=== PATIENT | female | born 1960 | race Caucasian/White ===

== ENCOUNTER 2018-03-03 05:06 | Day surgery (SDC) | payer BC ==
[~2018-03-03] VITALS: Ht 162.6 cm; Wt 68.9 kg
--- NOTE | ~2018-03-03 | OP ---
PATIENT NAME: LESLIE YORK MEDICAL RECORD: [id number] :56 LOCATION:[facility] ADMISSION DATE: SURGEON: NAZIA AHMADI MD DATE OF OPERATION: 03/03/2018 SURGEON: Nazia Ahmadi MD PREOPERATIVE DIAGNOSIS: Infiltrating lobular breast cancer. POSTOPERATIVE DIAGNOSIS: Infiltrating lobular breast cancer. PROCEDURE PERFORMED: Excisional biopsy of wire localized left axillary lymph node. ANESTHESIA: General. COMPLICATIONS: None. SPECIMENS: Left axillary lymph node, 2 x 2 x 3. Case was clean. ESTIMATED BLOOD LOSS: 20 cc. OPERATIVE COURSE: After consent was obtained, the patient was taken to the operating room and placed in supine position on the operating table. Next, general anesthesia was given via endotracheal intubation after a timeout was performed to confirm the correct patient and procedure. The left axilla was prepped and draped in typical sterile fashion. A 10 cc of local anesthetic was injected. An incision was made with a 15 blade scalpel. Dissection then continued to the subcutaneous tissue with Metzenbaum scissors following the path of the wire. The subcutaneous tissue, lymph node were circumferentially dissected with Metzenbaum scissors, removed and sent for permanent pathology. Next, the wound was copiously irrigated and suctioned. Hemostasis was obtained with electrocautery. Multiple clips were placed for localization. The subcutaneous tissues then closed with 3-0 Vicryl suture. The skin was closed with 4-0 subcuticular stitch, Mastisol and Steri-Strips. At the end of the case, all needle and instrument counts were correct. No complications occurred. The patient was extubated and transferred to the PACU in stable condition. TRANSINT:[id number] Voice Confirmation ID: [id number] DOCUMENT ID: [id number] NAZIA AHMADI MD at 0811 CC: [id number] DICTATION DATE: 03/03/18 1354 TRAILHEAD MAINTENANCE WORKER: 03/03/18 1539 [facility] 03/03/[address] [address]
[~2018-03-03 05:06] MED LIST: AMOXICILLIN500 M1 PO; AROMASIN25 MG PO; BACTRIM DS TABL1 TAB PO; BIOTIN5 MG PO; K-DUR20 MEQ PO; PERCOCET 10/3251 TA1 PO; PRILOSEC20 MG PO; PROBIOTIC250 MG PO; TAMOXIFEN CITRA20 MG PO; XANAX0.5 MG PO; ZIAC 5/6.25 MG1 TAB PO; ZOCOR5 MG PO
[2018-03-03 07:20] LABS: EOSINOPHILS 1.6 % (0-7); HEMATOCRIT 36.8 % (36.0-48.0); IMMATURE GRANULOCYTES 0.1 % (0-5); LYMPHOCYTES 32.9 % (15-50); MCH 31.5 pg (26.0-34.0); MCHC 32.6 g/dL (31.0-37.0); MCV 96.6 fL (80.0-100.0); MONOCYTES 8.3 % (2-11); NEUTROPHILS 56.1 % (40-80); RBC 3.81 10x6/uL (4.00-5.40); RDW 14.7 % (11.5-14.5); WBC 8.7 10x3/uL (4.8-10.8)
[2018-03-03 07:21] LABS: PLATELET COUNT 133 10x3/uL (130-400)
[2018-03-03 07:30] LABS: APTT 33.5 SECONDS (22.8-39.4); INR 1.27 (0.85-1.17); PROTIME 15.5 SECONDS (11.6-15.0)
[2018-03-03 07:31] VITALS: BP 140/85; Ht 162.6 cm; Wt 68.9 kg
[2018-03-03 07:31] LABS: CALC OSMOLALITY 281 mosm/kg (275-300); CALCIUM 8.6 mg/dL (8.5-10.1); CARBON DIOXIDE 22.3 mmol/L (21.0-32.0); CHLORIDE - SERUM 106 mmol/L (98-107); CREATININE - SERUM 0.5 mg/dL (0.6-1.3); GLUCOSE 100 mg/dL (74-106); SODIUM 142 mmol/L (136-145); UREA NITROGEN 10 mg/dL (7-18); eGFR NON AFRICAN AMERICAN > 90 mL/min (90-120)
[2018-03-03] MEDS ORDERED: HYDROCODON-ACE1 EAC7 PO (13:54)
== END 2018-03-03 16:15 | disposition home or self-care (01) ==
LOC: D.OPS 05:06 → D.PAN 07:30 → D.MAMMO 07:30 → D.PAN 08:00 → D.OPS 16:15
PROVIDERS: Anesthesiology
DX: C50.919 Malignant neoplasm of unspecified site of unspecified female breast (principal); Z01.812 Encounter for preprocedural laboratory examination

== ENCOUNTER 2018-12-16 10:39 | Inpatient (IN) | payer BC ==
[~2018-12-16] VITALS: Ht 162.6 cm; Wt 64.4 kg
[~2018-12-16 10:39] MED LIST changes: +HYDROCODON-ACE1 EAC7 PO
[2018-12-16 12:09] VITALS: BP 133/46
[2018-12-16 12:28] VITALS: BP 103/46; BMI 24.4
[2018-12-16 12:35] LABS: HEMATOCRIT 23.8 % (36.0-48.0); HEMOGLOBIN 7.9 g/dL (12-16); MCH 40.3 pg (26.0-34.0); MCHC 33.2 g/dL (31.0-37.0); MCV 121.4 fL (80.0-100.0); MEAN PLATELET VOLUME 10.2 fL (7.4-10.4); RDW 24.2 % (11.5-14.5); WBC 16.2 10x3/uL (4.8-10.8)
[2018-12-16] MEDS ORDERED: ZANTAC300 MG PO (12:41)
[2018-12-16 12:43] LABS: PLATELET COUNT 45 10x3/uL (130-400); RBC 1.96 10x6/uL (4.00-5.40)
[2018-12-16 12:46] LABS: ALBUMIN 3.3 g/dL (3.4-5.0); ALKALINE PHOSPHATASE 147 U/L (46-116); ALT (SGPT) 28 U/L (10-68); BILIRUBIN - TOTAL 3.17 mg/dL (0.2-1.3); CALC OSMOLALITY 279 mosm/kg (275-300); CARBON DIOXIDE 21.4 mmol/L (21.0-32.0); CHLORIDE - SERUM 104 mmol/L (98-107); CREATININE - SERUM 0.7 mg/dL (0.6-1.3); GLUCOSE 97 mg/dL (74-106); POTASSIUM - SERUM 3.4 mmol/L (3.5-5.1); PROTEIN - SERUM 7.2 g/dL (6.4-8.2); SODIUM 141 mmol/L (136-145); UREA NITROGEN 11 mg/dL (7-18); eGFR NON AFRICAN AMERICAN 90 mL/min (90-120)
[2018-12-16 12:48] LABS: CALCIUM 5.6 mg/dL (8.5-10.1)
--- NOTE | 2018-12-16 13:32 | NUR ---
SPOKE WITH MARTINA AT DR. CISNEROS OFFICE ABOUT CRITICAL LABS. STATED SHE WOULD LET DR. CISNEROS KNOW. NO NEW ORDERS AT THIS TIME.
--- NOTE | 2018-12-16 13:49 | MORECARE ---
CASE MANAGEMENT DISCHARGE SUMMARY PATIENT: LESLIE YORK UNIT: [id number] ADM DATE: 12/16/18 AGE: 58 : 56 SEX: F ROOM/BED: D.2225 AUTHOR: DARIUS SHAW PHYSICIAN: REFERRING PHYSICIAN: MCKENZIE CISNEROS MD DATE OF SERVICE: 12/16/18 Discharge Plan Patient Name: LESLIE YORK Facility: [facility]:[place] : 1960 Planned Disposition: Home Anticipated Discharge Date: Discharge Date: Expected LOS: Initial Reviewer: [email or web address] Initial Review Date: 12/16/2018 Generated: 12/16/18 2:48 pm Patient Name: LESLIE YORK Page [id number] at 1349 All edits/amendments must be made on the electronic document DICTATION DATE: 12/16/18 1348 EQUITIES TRADER: ANNALISE 12/16/18 1348 RPT#: [id number] DC DATE: STATUS: ADM IN [facility] [address] [place] [address] END OF REPORT
--- NOTE | 2018-12-16 14:00 | MORECARE ---
CASE MANAGEMENT DISCHARGE SUMMARY PATIENT: LESLIE YORK UNIT: [id number] ADM DATE: 12/16/18 AGE: 58 : 56 SEX: F ROOM/BED: D.2225 AUTHOR: DARISU SHAW PHYSICIAN: REFERRING PHYSICIAN: MCKENZIE CISNEROS MD DATE OF SERVICE: 12/16/18 Discharge Plan Patient Name: LESLIE YORK [facility] [facility] 1960 Planned Disposition: Home Anticipated Discharge Date: Discharge Date: Expected LOS: Initial Reviewer: [email or web address] Initial Review Date: 12/16/2018 Generated: 12/16/18 3:00 pm DCPIA - Discharge Planning Initial Assessment Updated by [email or web address]: Cher Cook on 12/16/18 1:57 pm * Is the patient Alert and Oriented? Yes * How many steps to enter\exit or inside your home? 0/1 flight * PCP Lorraine Pereyra with Dr. Yuen's office in [place] * Pharmacy [place] * Preadmission Environment Home with Family * ADLs Independent * Equipment None * List name and contact numbers for known caregivers / representatives who currently or will assist patient after discharge: [facility] - [phone] * Verbal permission to speak to the caregivers and representatives has been obtained from the patient. Yes * Community resources currently utilized None * Additional services required to return to the preadmission environment? No * Can the patient safely return to the preadmission environment? Yes * Has this patient been hospitalized within the prior 30 days at any hospital? No Last DP export: 12/16/18 12:49 p Patient Name: LESLIE YORK Page 78436 at 1400 All edits/amendments must be made on the electronic document DICTATION DATE: 12/16/18 1400 TREE AND SHRUB WORKER: ANNALISE 12/16/18 1400 RPT#: [id number] DC DATE: STATUS: ADM IN [facility] [address] [place] [address] END OF REPORT
--- NOTE | 2018-12-16 14:10 | MORECARE ---
CASE MANAGEMENT DISCHARGE SUMMARY PATIENT: LESLIE YORK UNIT: [id number] ADM DATE: 12/16/18 AGE: 58 : 56 SEX: F ROOM/BED: D.2225 AUTHOR: COLINDOC PHYSICIAN: REFERRING PHYSICIAN: MCKENZIE CISNEROS MD DATE OF SERVICE: 12/16/18 Discharge Plan Patient Name: LESLIE YORK Facility: [facility]:[place] : 1960 Planned Disposition: Home Anticipated Discharge Date: Discharge Date: Expected LOS: Initial Reviewer: [email or web address] Initial Review Date: 12/16/2018 Generated: 12/16/18 3:10 pm Comments DCP- Discharge Planning Updated by [email or web address]: Cher Cook on 12/16/18 1:[address] Patient Name: LESLIE YORK Admission Status: Elective Accout number: [id number] Admission Date: 12-16-2018 : 1960 Admission Diagnosis: Attending: MCKENZIE CISNEROS Current LOS: 1 Anticipated DC Date: Planned Disposition: Home Primary Insurance: [employer] EXCHANGE Discharge Planning Comments: CM met with patient and her to discuss discharge planning. She lives with her , he will take her home on discharge. States she is independent with all ADL's and IADL's. States she does not have any DME or need any DME. States she does not have any outside community resources assisting in the home and declines home health. No needs identified at this time. CM will continue to follow and assist with discharge planning/needs. Adjunct Latin Professor: Cher Cook DCPIA - Discharge Planning Initial Assessment Updated by [email or web address]: Cher Cook on 12/16/18 1:57 pm * Is the patient Alert and Oriented? Yes * How many steps to enter\exit or inside your home? 0/1 flight * PCP Lorraine Pereyra with Dr. Yuen's office in [place] * Pharmacy [place] * Preadmission Environment Home with Family * ADLs Independent * Equipment None * List name and contact numbers for known caregivers / representatives who currently or will assist patient after discharge: Tae - - [phone] * Verbal permission to speak to the caregivers and representatives has been obtained from the patient. Yes * Community resources currently utilized None * Additional services required to return to the preadmission environment? No * Can the patient safely return to the preadmission environment? Yes * Has this patient been hospitalized within the prior 30 days at any hospital? No Last DP export: 12/16/18 1:00 p Patient Name: LESLIE YORK Page 08202 at 1410 All edits/amendments must be made on the electronic document DICTATION DATE: 12/16/181408 LICENSING AND REGISTRATION DIRECTOR: ANNALISE 12/16/181408 RPT#: [id number] DC DATE: STATUS: ADM IN [facility] [address] [place] [address] END OF REPORT
[2018-12-16 14:49] LABS: ANISOCYTOSIS 1+; EOSINOPHILS 2 % (0-7); LYMPHOCYTES 50 % (15-50); MONOCYTES 3 % (2-11); NEUTROPHILS 45 % (40-80); PLATELET ESTIMATE DECREASED
--- NOTE | 2018-12-16 16:11 | NUR ---
PATIENT BACK FROM CT SCAN. GOING TO RECIEVE BLOOD AND PLATELETS. IV INTACT. CALL LIGHT WITHIN REACH.
--- NOTE | 2018-12-16 17:30 | NUR ---
PATIENT PLATELETS STARTED AT THIS TIME. RECIEVED BENADRYL AND TYLENOL PREMED. VS STABLE. IV INTACT. WILL CONTINUE TO MONITOR.
--- NOTE | 2018-12-16 17:45 | NUR ---
PATIENT PLATELETS COMPLETE. IV INTACT. VS STABLE. NO COMPLAINTS OR SIGNS OF DISTRESS. FAMILY AT BEDSIDE. CALL LIGHT WITHIN REACH.
--- NOTE | 2018-12-16 18:30 | NUR ---
FIRST UNIT OF BLOOD STARTED AT THIS TIME. IV INTACT. NO COMPLAINTS OR SIGNS OF DISTRESS. VS STABLE. FAMILY AT BEDSIDE. CALL LIGHT WITHIN REACH.
--- NOTE | 2018-12-16 18:45 | NUR ---
PATIENT IN BED WITH IV INTACT. NO COMPLAINTS OR SIGNS OF DISTRESS. VS STABLE. BLOOD INFUSING. CALL LIGHT WITHIN REACH. FAMILY AT BEDSIDE.
[2018-12-16 20:20] VITALS: BP 122/59
--- NOTE | 2018-12-17 02:19 | NUR ---
ASSESSED, PT IS ASLEEP WITH EASY RESPIRATIONS AND NO DISTRESS NOTED. BLOOD IS INFUSING ORDERED.
[2018-12-17 05:44] LABS: EOSINOPHILS 0.6 % (0-7); HEMATOCRIT 26.9 % (36.0-48.0); IMMATURE GRANULOCYTES 2.6 % (0-5); LYMPHOCYTES 43.4 % (15-50); MCH 35.7 pg (26.0-34.0); MCHC 33.5 g/dL (31.0-37.0); MEAN PLATELET VOLUME 10.2 fL (7.4-10.4); MONOCYTES 7.3 % (2-11); NEUTROPHILS 45.1 % (40-80); WBC 15.6 10x3/uL (4.8-10.8)
[2018-12-17 05:45] LABS: MCV 106.7 fL (80.0-100.0); RBC 2.52 10x6/uL (4.00-5.40)
[2018-12-17 05:47] LABS: PLATELET COUNT 38 10x3/uL (130-400)
[2018-12-17 05:53] VITALS: BP 114/69; BP 85/44
[2018-12-17 06:02] LABS: APTT 44.6 SECONDS (22.8-39.4); INR 1.36 (0.85-1.17); PROTIME 16.2 SECONDS (11.6-15.0)
[2018-12-17 06:10] LABS: ALBUMIN 3.1 g/dL (3.4-5.0); ALKALINE PHOSPHATASE 130 U/L (46-116); ALT (SGPT) 23 U/L (10-68); BILIRUBIN - DIRECT 1.72 mg/dL (0.00-0.30); BILIRUBIN - INDIRECT 2.76 mg/dL (0.00-1.00); BILIRUBIN - TOTAL 4.48 mg/dL (0.2-1.3); CARBON DIOXIDE 21.2 mmol/L (21.0-32.0); CHLORIDE - SERUM 104 mmol/L (98-107); CHOL - HDL RATIO 8.7 ratio (2.3-4.1); CHOLESTEROL, TOTAL 148 mg/dL (0-200); CREATININE - SERUM 0.7 mg/dL (0.6-1.3); GAMMA GT 201 U/L (5-85); GLUCOSE 86 mg/dL (74-106); HDL CHOLESTEROL 17 mg/dL (32-96); LDL CHOLESTEROL 99 mg/dL (0-100); LDL-HDL RATIO 5.8 ratio (1.5-3.5); POTASSIUM - SERUM 3.2 mmol/L (3.5-5.1); PRE-ALBUMIN 15.9 mg/dL (18.0-35.7); PROTEIN - SERUM 6.8 g/dL (6.4-8.2); SODIUM 141 mmol/L (136-145); TRIGLYCERIDE 162 mg/dL (30-200); eGFR NON AFRICAN AMERICAN 90 mL/min (90-120)
--- NOTE | 2018-12-17 06:18 | NUR ---
CRITICAL LOW PLATELET COUNT OF 38, DR. STARR NOTIFIED. ORDERS FOR UNIT OF PLATELETS AND PRBC PUT IN PER DRs ORDERS. DR STARR ALSO INSISTED TO MAKE SURE THEY WERE INFUSED MILLIE AND PLATELETS TO BE INFUSED FIRST. LAB CALLED AND NOTIFIED OF ORDERS.
[2018-12-17 06:45] LABS: CALC OSMOLALITY 277 mosm/kg (275-300); UREA NITROGEN 8 mg/dL (7-18)
[2018-12-17 06:46] LABS: CALCIUM 5.2 mg/dL (8.5-10.1)
[2018-12-17 07:31] VITALS: BP 120/80
--- NOTE | 2018-12-17 08:51 | NUR ---
PT LYING IN BED SPEAKING WITH DR STARR, PLATELETS RUNNING, NO NEEDS VOICED, CONTINUE WITH PLAN OF CARE
--- NOTE | 2018-12-17 09:43 | NUR ---
PT'S IV ON INNER RIGHT ARM WAS INFILTERATED UPON PICKING UP PT FROM PT'S ROOM (#9393). FLUIDS AND PLATELETS STOPPED. IV RESITED TO R OUTER FOREARM UPON ARRIVAL TO GI LAB BY THIS NURSE. 20 G X 1 ATTEMPT. FLUIDS AND PLATELETS RESTARTED.
--- NOTE | 2018-12-17 10:18 | NUR ---
RECEIVED CALL FROM LEONELA IN GI WITH REPORT, PT IS TO HAVE ANOTHER UNIT OF PLATELETS, PT TO BE TRANSPORTED TO SPECUIALS AND THEN MRI. CONTINUE WITH PLAN OF CaRE
--- NOTE | 2018-12-17 12:11 | NUR ---
HAMMER HEATER NOTE-PT AND FAMILY AT BEDSIDE. NO COMPLAINTS AT PRESENT. REQUESTING TO HAVE XANAX FOR MRI THIS AFTERNOON. SCDS APPLIED TO BILAT LEGS. CALL LIGHT IN REACH
[2018-12-17 12:35] VITALS: Ht 162.6 cm; Wt 64.4 kg
[2018-12-17 13:37] VITALS: BP 125/67
[2018-12-17 17:45] VITALS: BP 124/65
--- NOTE | 2018-12-17 19:15 | NUR ---
RECEIVED CARE FROM DAY NURSE. LYING IN BED WATCHING TV. SPOUSE AT BEDSIDE. REPORTS NO NEEDS AT THIS TIME. MVI INFUSING PER ORDER TO LEFT FA.
--- NOTE | 2018-12-17 19:29 | NUR ---
PT RESTING IN BED, EYES OPEN. NO C/O PAIN. NO S/S OF ACUTE DISTRESS NOTED. PT DENIES ANYTHING FURTHER AT THIS TIME. AT BEDSIDE. CALL LIGHT IN REACH. WILL CONTINUE TO MONITOR.
[2018-12-17 20:00] VITALS: BP 95/51
--- NOTE | 2018-12-17 20:15 | NUR ---
BLOOD INITIATED PER ORDER.
[2018-12-18 05:20] LABS: HEMATOCRIT 29.4 % (36.0-48.0); HEMOGLOBIN 9.8 g/dL (12-16); MCH 34.8 pg (26.0-34.0); MCHC 33.3 g/dL (31.0-37.0); MCV 104.3 fL (80.0-100.0); MEAN PLATELET VOLUME 10.8 fL (7.4-10.4); PLATELET COUNT 57 10x3/uL (130-400); RBC 2.82 10x6/uL (4.00-5.40); RDW 31.5 % (11.5-14.5); WBC 22.1 10x3/uL (4.8-10.8)
[2018-12-18 05:25] VITALS: BP 102/56
[2018-12-18 05:35] LABS: ALBUMIN 2.9 g/dL (3.4-5.0); ALKALINE PHOSPHATASE 119 U/L (46-116); ALT (SGPT) 23 U/L (10-68); BILIRUBIN - TOTAL 3.59 mg/dL (0.2-1.3); CALC OSMOLALITY 277 mosm/kg (275-300); CARBON DIOXIDE 19.3 mmol/L (21.0-32.0); CHLORIDE - SERUM 106 mmol/L (98-107); CREATININE - SERUM 0.6 mg/dL (0.6-1.3); GLUCOSE 108 mg/dL (74-106); PROTEIN - SERUM 6.7 g/dL (6.4-8.2); SODIUM 140 mmol/L (136-145); UREA NITROGEN 7 mg/dL (7-18); eGFR NON AFRICAN AMERICAN > 90 mL/min (90-120)
[2018-12-18 05:36] LABS: POTASSIUM - SERUM 2.7 mmol/L (3.5-5.1)
[2018-12-18 05:37] LABS: CALCIUM 4.8 mg/dL (8.5-10.1)
[2018-12-18 05:44] LABS: INR 1.5 (0.85-1.17); PROTIME 17.5 SECONDS (11.6-15.0)
[2018-12-18 05:46] LABS: LYMPHOCYTES 36 % (15-50); MONOCYTES 7 % (2-11); NEUTROPHILS 49 % (40-80); PLATELET ESTIMATE DECREASED
--- NOTE | 2018-12-18 06:00 | NUR ---
SPOKE WITH DR SINGH ABOUT CRITICAL LABS. NEW ORDERS RECEIVED AND ENTERED INTO THE COMPUTER.
[2018-12-18 07:28] LABS: HEPATITIS C ANTIBODY <0.1 S/CO RAT (0.0-0.9)
[2018-12-18 08:57] VITALS: BP 100/63
[2018-12-18 11:11] LABS: CEA 125.2 ng/mL (0.0-4.7)
[2018-12-18 12:55] VITALS: BP 119/74
--- NOTE | 2018-12-18 14:37 | NUR ---
UP TO BR PER SELF. AT BEDSIDE. DENIES NEEDS.
--- NOTE | 2018-12-18 19:15 | NUR ---
RECEIVED CARE FROM DAY NURSE. LYING IN BED WITH SPOUSE AT BEDSIDE. REPORTS NO NEEDS AT THIS TIME. CALL LIGHT AT SIDE. IV INFUSING PER ORDER TO LEFT FA.
[2018-12-18 20:00] VITALS: BP 116/68
[2018-12-19] VITALS: BP 121/65
--- NOTE | 2018-12-19 00:14 | NUR ---
RN NOTE: PT RESTING QUIETLY IN SUPINE POSITION. AGREE WITH LEVEL VIAL SEALER ASSESSMENT. SIDE RAILS UP X2 FOR SAFETY.
--- NOTE | 2018-12-19 07:30 | NUR ---
AWAKE AND ALERT, SPOUSE PRESENT IN ROOM, EVEN UNLABORED BREATHING, IV IN LEFT FOREARM, INFUSING MVI WITH PROCAL, PATENT, DENIES ANY CURRENT NEEDS OR DISCOMFORTS, BED LOWERED AND LOCKED, CALL LIGHT WITHIN REACH. CPOC
[2018-12-19 07:41] LABS: ALBUMIN 2.8 g/dL (3.4-5.0); ALKALINE PHOSPHATASE 110 U/L (46-116); ALT (SGPT) 19 U/L (10-68); BILIRUBIN - TOTAL 4.56 mg/dL (0.2-1.3); CALC OSMOLALITY 276 mosm/kg (275-300); CARBON DIOXIDE 15.5 mmol/L (21.0-32.0); CHLORIDE - SERUM 109 mmol/L (98-107); CREATININE - SERUM 0.5 mg/dL (0.6-1.3); GLUCOSE 111 mg/dL (74-106); MAGNESIUM - SERUM 1.5 mg/dL (1.8-2.4); POTASSIUM - SERUM 3.7 mmol/L (3.5-5.1); SODIUM 139 mmol/L (136-145); UREA NITROGEN 7 mg/dL (7-18); eGFR NON AFRICAN AMERICAN > 90 mL/min (90-120)
[2018-12-19 07:46] LABS: CALCIUM 5.3 mg/dL (8.5-10.1); HEMOGLOBIN 9.6 g/dL (12-16); MCH 36.1 pg (26.0-34.0); MCHC 33.1 g/dL (31.0-37.0); MEAN PLATELET VOLUME 11.2 fL (7.4-10.4); RBC 2.66 10x6/uL (4.00-5.40); WBC 17.8 10x3/uL (4.8-10.8)
[2018-12-19 07:49] LABS: PLATELET COUNT 46 10x3/uL (130-400)
--- NOTE | 2018-12-19 07:58 | NUR ---
LAB CALLED WITH CRITICAL LABS OF AMMONIA OF 76, CALCIUM 5.3, PLATLET OF 46. CALLED DR[address] JOHNSON AND SHE RESUMED ADMINISTRATION OF LACTULOSE. NO OTHER ORDERS WERE RECIEVED. WILL CONTINUE TO MONITOR.
[2018-12-19 08:18] LABS: EOSINOPHILS 1 % (0-7); LYMPHOCYTES 40 % (15-50); MONOCYTES 3 % (2-11); NEUTROPHILS 56 % (40-80); PLATELET ESTIMATE DECREASED
[2018-12-19 09:21] VITALS: BP 114/66
--- NOTE | 2018-12-19 13:29 | NUR ---
SITTING UP IN BED. HAPPY TO BE GOING HOME. DENIES NEEDS.
[2018-12-19] MEDS ORDERED: FLAGYL250 MG PO (16:15)
[2018-12-19] MEDS ORDERED: LEVOFLOXACIN500 MG PO (16:15)
[2018-12-19] MEDS ORDERED: XIFAXAN550 MG PO (16:16)
[2018-12-19] MEDS ORDERED: TUMS X-STR300 MG PO (16:16)
[2018-12-19 16:56] VITALS: BP 116/68
--- NOTE | 2018-12-19 17:45 | NUR ---
DISCHARGE INSTRUCTIONS PROVIDED. VERBALIZES UNDERSTANDING, DENIES ANY CONCERNS OR QUESTIONS. ESCORTED FROM UNIT VIA WHEELCHAIR WITH FAMILY MEMBER.
[2018-12-19 19:08] LABS: ALP - ISO (ALP) 138 IU/L (39-117); ALP - ISO (BONE) FRACTION 62 % (14-68); ALP - ISO (LIVER) FRACTION 37 % (18-85); ALP - ISO(INTESTINAL) FRACTION 1 % (0-18)
--- NOTE | 2018-12-20 16:58 | MORECARE ---
CASE MANAGEMENT DISCHARGE SUMMARY PATIENT: LESLIE YORK UNIT: [id number] ADM DATE: 12/16/18 AGE: 58 : 56 SEX: F ROOM/BED: D.2225 AUTHOR: COLIN,DOC PHYSICIAN: REFERRING PHYSICIAN: MCKENZIE CISNEROS MD DATE OF SERVICE: 12/20/18 Discharge Plan Patient Name: LESLIE YORK Facility: [facility]:[place] : 1960 Planned Disposition: Home Anticipated Discharge Date: Discharge Date: 12/19/2018 Expected LOS: 0 Initial Reviewer: [email or web address] Initial Review Date: 12/16/2018 Generated: 12/20/18 5:57 pm DCP- Discharge Planning Updated by [email or web address]: Cher Cook on 12/16/18 1:[address] Patient Name: LESLIE YORK Admission Status: Elective Accout number: [id number] Admission Date: 12-16-2018 : 1960 Admission Diagnosis: Attending: MCKENZIE CISNEROS Current LOS: 1 Anticipated DC Date: Planned Disposition: Home Primary Insurance: [employer] EXCHANGE Discharge Planning Comments: CM met with patient and her to discuss discharge planning. She lives with her , he will take her home on discharge. States she is independent with all ADL's and IADL's. States she does not have any DME or need any DME. States she does not have any outside community resources assisting in the home and declines home health. No needs identified at this time. CM will continue to follow and assist with discharge planning/needs. Coin Machine Servicer Repairer: Cher Cook DCPIA - Discharge Planning Initial Assessment Updated by [email or web address]: Cher Cook on 12/16/18 1:57 pm * Is the patient Alert and Oriented? Yes * How many steps to enter\exit or inside your home? 0/ flight * PCP Lorraine Pereyra with Dr. Yuen's office in [place] * Pharmacy [place] * Preadmission Environment Home with Family * ADLs Independent * Equipment None * List name and contact numbers for known caregivers / representatives who currently or will assist patient after discharge: Tae - - [phone] * Verbal permission to speak to the caregivers and representatives has been obtained from the patient. Yes * Community resources currently utilized None * Additional services required to return to the preadmission environment? No * Can the patient safely return to the preadmission environment? Yes * Has this patient been hospitalized within the prior 30 days at any hospital? No Last DP export: 12/16/18 1:10 p Patient Name: LESLIE YORK Page 30062 at 1658 All edits/amendments must be made on the electronic document DICTATION DATE: 12/20/181656 OVERHEAD CLEANER MAINTAINER: ANNALISE 12/20/181656 RPT#: [id number] DC DATE:12/19/18 STATUS: DIS IN [facility] [address] [place] [address] END OF REPORT
== END 2018-12-19 17:45 | disposition home or self-care (01) | DRG 378 ==
LOC: D.MS 10:39
PROVIDERS: Internal Medicine Gastroenterology; Specialist; ADMIT Internal Medicine Medical Oncology
PROC: 0DBG8ZX Excision of Left Large Intestine, Via Natural or Artificial Opening Endoscopic, Diagnostic (ICD-10-PCS; 2018-12-17)
PROC: 0DB68ZX Excision of Stomach, Via Natural or Artificial Opening Endoscopic, Diagnostic (ICD-10-PCS; principal; 2018-12-17 09:00)
DX: K29.01 Acute gastritis with bleeding (principal); D62 Acute posthemorrhagic anemia; C78.5 Secondary malignant neoplasm of large intestine and rectum; D68.4 Acquired coagulation factor deficiency; K72.90 Hepatic failure, unspecified without coma; D69.6 Thrombocytopenia, unspecified; K25.6 Chronic or unspecified gastric ulcer with both hemorrhage and perforation; D73.2 Chronic congestive splenomegaly

== ENCOUNTER 2018-12-31 13:40 | Outpatient (CLI) | payer BC ==
[~2018-12-31] VITALS: Ht 162.6 cm; Wt 65.9 kg
[~2018-12-31 13:40] MED LIST changes: +FLAGYL250 MG PO; +LEVOFLOXACIN500 MG PO; +TUMS X-STR300 MG PO; +XIFAXAN550 MG PO; +ZANTAC300 MG PO
[2018-12-31 14:55] VITALS: BP 100/57; Ht 162.6 cm; Wt 65.9 kg
--- NOTE | 2018-12-31 16:00 | NUR ---
ASSUMED CARE OF PATIENT. BLOOD INFUSING VIA RIGHT PIV WITHOUT DIFFICULTY. DENIES NEEDS. FAMILY AT BEDSIDE.
--- NOTE | 2018-12-31 17:25 | NUR ---
UNIT OF PRBC'S COMPLETED. WRITTEN AND VERBAL DC INST. GIVEN TO PT. EXPLAINED HAS TO WAIT 30 MINUTES AFTER TRANSFUSION BEFORE CAN DISCHARGE. VERBALIZED UNDERSTANDING.
--- NOTE | 2018-12-31 17:55 | NUR ---
IV DC'D WITH CATHETER INTACT.
--- NOTE | 2018-12-31 18:05 | NUR ---
DC'D HOME WITH FAMILY VIA PRIVATE VEHICLE. TAKEN TO VEHICLE VIA WC. STABLE AT TIME OF DC.
== END 2018-12-31 18:05 | disposition home or self-care (01) ==
LOC: D.OPS 13:40
DX: D64.9 Anemia, unspecified (principal)

== ENCOUNTER → 2019-01-19 09:59 | Outpatient (CLI) | payer BC ==
[2018-12-31 14:55] VITALS: BMI 24.9
[2019-01-19 10:58] LABS: HEMATOCRIT 22.2 % (36.0-48.0); MCH 34.7 pg (26.0-34.0); MCHC 31.5 g/dL (31.0-37.0); MCV 109.9 fL (80.0-100.0); MEAN PLATELET VOLUME 10.1 fL (7.4-10.4); RBC 2.02 10x6/uL (4.00-5.40); RDW 24.7 % (11.5-14.5); WBC 12.7 10x3/uL (4.8-10.8)
[2019-01-19 11:07] LABS: ALBUMIN 3.4 g/dL (3.4-5.0); BILIRUBIN - DIRECT 1.07 mg/dL (0.00-0.30); BILIRUBIN - INDIRECT 1.38 mg/dL (0.00-1.00); BILIRUBIN - TOTAL 2.45 mg/dL (0.2-1.3); PROTEIN - SERUM 7.5 g/dL (6.4-8.2)
[2019-01-19 11:15] LABS: INR 1.3 (0.85-1.17); PROTIME 15.7 SECONDS (11.6-15.0)
[2019-01-19 11:22] LABS: PLATELET COUNT 67 10x3/uL (130-400)
[2019-01-19 11:34] LABS: LYMPHOCYTES 54 % (15-50); MONOCYTES 6 % (2-11); NEUTROPHILS 40 % (40-80)
[2019-01-19 11:38] LABS: PLATELET MORPHOLOGY NORMAL PLT MORPH
[2019-01-19 11:40] LABS: PLATELET ESTIMATE DECREASED
== END | disposition home or self-care (01) ==
LOC: D.US 01-06 08:30 → D.LAB 01-06 09:30 → D.US 01-14 10:00 → D.LAB 01-14 10:30 → D.US 09:59
PROVIDERS: Internal Medicine Gastroenterology
DX: D18.09 Hemangioma of other sites (principal); E72.20 Disorder of urea cycle metabolism, unspecified; E80.6 Other disorders of bilirubin metabolism

== ENCOUNTER → 2019-06-10 10:42 | Outpatient (CLI) | payer BC ==
[2018-12-31 14:55] VITALS: BMI 24.9
[2019-06-10 11:17] LABS: BASOPHILS 0.8 % (0-2); EOSINOPHILS 1.3 % (0-7); HEMATOCRIT 27.4 % (36.0-48.0); HEMOGLOBIN 9.2 g/dL (12-16); IMMATURE GRANULOCYTES 0.4 % (0-5); LYMPHOCYTES 38.5 % (15-50); MCH 31.7 pg (26.0-34.0); MCHC 33.6 g/dL (31.0-37.0); MCV 94.5 fL (80.0-100.0); MEAN PLATELET VOLUME 10.3 fL (7.4-10.4); MONOCYTES 7.5 % (2-11); NEUTROPHILS 51.5 % (40-80); PLATELET COUNT 72 10x3/uL (130-400); RDW 22.2 % (11.5-14.5); WBC 14.8 10x3/uL (4.8-10.8)
[2019-06-10 11:37] LABS: ALBUMIN 2.8 g/dL (3.4-5.0); ALKALINE PHOSPHATASE 151 U/L (46-116); ALT (SGPT) 22 U/L (10-68); BILIRUBIN - DIRECT 1.63 mg/dL (0.00-0.30); BILIRUBIN - INDIRECT 2.07 mg/dL (0.00-1.00); CALC OSMOLALITY 272 mosm/kg (275-300); CARBON DIOXIDE 18.2 mmol/L (21.0-32.0); CHLORIDE - SERUM 102 mmol/L (98-107); GLUCOSE 94 mg/dL (74-106); POTASSIUM - SERUM 4.7 mmol/L (3.5-5.1); PROTEIN - SERUM 7.7 g/dL (6.4-8.2); SODIUM 136 mmol/L (136-145); UREA NITROGEN 15 mg/dL (7-18); eGFR NON AFRICAN AMERICAN 60 mL/min (90-120)
[2019-06-10 12:48] LABS: PLATELET ESTIMATE DECREASED
[2019-06-10 12:49] LABS: POLYCHROMASIA OCC
[2019-06-10 12:50] LABS: ANISOCYTOSIS OCC
[2019-06-10 14:45] LABS: CALCIUM < 5.0 mg/dL (8.5-10.1)
== END | disposition home or self-care (01) ==
LOC: D.LAB 10:42 → D.US 11:30
PROVIDERS: ATTEND Internal Medicine Gastroenterology
DX: D18.09 Hemangioma of other sites (principal); K72.90 Hepatic failure, unspecified without coma